=== PATIENT | female | born 1995 | race Caucasian/White ===

== ENCOUNTER → 2019-09-29 | Outpatient (CLI) | payer OTHER ==
[~2019-09-29] VITALS: Ht 172.7 cm; Wt 67.5 kg
[2019-09-29 13:06] VITALS: BP 103/67; PULSE 53
[2019-09-29 14:10] VITALS: BP 116/68; PULSE 58
== END ==
LOC: COL.RAD 12:45
DX: R59.0 Localized enlarged lymph nodes (principal)
CPT/HCPCS: 32106